=== PATIENT | female | born 1950 | race Two or more races ===

== ENCOUNTER 2021-01-01 07:45 | Day surgery (SDC) | payer OTHER ==
[~2021-01-01 07:45] MED LIST: ADULT LOW DOSE81 M1 PO; GABAPENT PO; GRALISE600 MG PO; HYZAAR 50-12.1 UDTAB PO; KEFLEX250 MG PO; LIPIT; SYNTHROID100 MCG PO; SYNTHROID125 MCG PO; ULTRACET PO
[2021-01-01] MEDS ORDERED: ULTRACET PO (12:10)
[2021-01-01] MEDS ORDERED: KEFLEX750 MG PO (12:10)
== END 2021-01-01 13:35 | disposition home or self-care (01) ==
LOC: CIR.AMB 07:45
PROVIDERS: ATTEND Obstetrics & Gynecology Gynecology
DX: N39.41 Urge incontinence (principal); N32.81 Overactive bladder; Z20.828 Contact with and (suspected) exposure to other viral communicable diseases
CPT/HCPCS: 64590; 64581; 95972; C1778; L8679